=== PATIENT | female | born 1980 ===

== ENCOUNTER 2017-11-26 14:55 | Emergency (ER) | payer MEDICAID ==
[~2017-11-26] VITALS: Ht 152.4 cm; Wt 63.5 kg
--- NOTE | 2017-11-26 17:08 | NUR ---
Patient discharged to home in stable conditon. Written and verbal after care instructions given. Patient verbalizes understanding of instructions.pt with mother, no sign of distress. pt calm.
[2017-11-26 17:11] VITALS: BP 131/81
== END 2017-11-26 17:12 | disposition home or self-care (01) ==
LOC: ER 14:55
DX: F41.0 Panic disorder [episodic paroxysmal anxiety] (principal); E11.9 Type 2 diabetes mellitus without complications; R51 Headache; F84.0 Autistic disorder
CPT/HCPCS: 99284; A4663